=== PATIENT | male | born 1955 | race Caucasian/White ===

== ENCOUNTER 2021-06-22 06:25 | Inpatient (IN) ==
[2021-06-22] MEDS ORDERED: 0.9 % Sodium Chloride 1,000 ML ONE ×2 (06:33→08:27)
[2021-06-22] MEDS ORDERED: *HR* Vasopressin 20 UNIT/ML VIAL ONE (06:43)
[2021-06-22] MEDS ORDERED: NiCARdipine 2.5 MG/10 ML Syringe IVPB ONE (06:43)
[2021-06-22] MEDS ORDERED: 0.9 % Sodium Chloride 250 ML ONE (06:57)
[2021-06-22] MEDS ORDERED: Vancomycin 1,000 MG VIAL ONE (06:57)
[2021-06-22] MEDS ORDERED: D5% in Water 100 ML ONE (06:57)
[2021-06-22] MEDS ORDERED: Protamine Sulfate 50 MG/5 ML VIAL IVP ONE ×2 (07:02→07:33)
[2021-06-22] MEDS ORDERED: Heparin 1,000 UNITS/500 mL 2,000 ML ONE (07:03)
[2021-06-22] MEDS ORDERED: *HR* Heparin 10,000 UNIT/10 ML VIAL ONE ×3 (07:03→07:57)
[2021-06-22] MEDS ORDERED: ISOVUE-370 200 ML INFUS..BTL ONE (07:03)
[2021-06-22] MEDS ORDERED: 0.9 % Sodium Chloride 2,000 ML ONE (07:03)
[2021-06-22] MEDS ORDERED: *HR* Norepinephrine 4 MG/4 ML VIAL IVC ONE (07:12)
[2021-06-22] MEDS ORDERED: *HR* FentaNYL (PF) 100 MCG/2 ML VIAL ONE ×2 (07:18→09:19)
[2021-06-22] MEDS ORDERED: *HR* Midazolam HCl 2 MG/2 ML VIAL ONE (07:18)
[2021-06-22] MEDS ORDERED: *HR* Midazolam HCl 5 MG/5 ML VIAL IVP ONE (08:49)
[2021-06-22] MEDS ORDERED: *HR* LORazepam 2 MG/ML VIAL IVP PRN (11:04)
[2021-06-22] MEDS ORDERED: Ipratropium/Albuterol Neb 3 ML IH PRN (11:06)
[2021-06-22] MEDS: Norepinephrine 4 MG/254 ML IV.SOLN IVC SCH ×2 (11:56→15:43)
[2021-06-22] MEDS ORDERED: *HR* Labetalol 20 MG/4 ML SYRINGE IVP ONE (12:21)
[2021-06-22] MEDS: Folic Acid 1 MG TABLET PO SCH (12:42)
[2021-06-22] MEDS: Thiamine (B-1) 100 MG TABLET PO SCH (12:42)
[2021-06-22] MEDS: Gabapentin 300 MG CAPSULE PO SCH ×3 (12:42→19:30)
[2021-06-22] MEDS ORDERED: Nitroglycerin 0.4 MG TAB.SUBL SL PRN (13:32)
[2021-06-22] MEDS: *HR* Heparin 5,000 UNIT/ML VIAL SQ SCH ×2 (14:57→21:05)
[2021-06-22] MEDS: CeFAZolin 2,000 MG/120 ML BAG IVPB SCH (14:57)
[2021-06-22] MEDS ORDERED: Perflutren Lipid Microsphere 1.3 ML in 0.9 % Sodium Chloride 8.7 ML IVP PRN (16:15)
[2021-06-22] MEDS ORDERED: hydroCHLOROthiazide 25 MG TABLET PO ONE (16:57)
[2021-06-22] MEDS ORDERED: Isosorbide MONOnitrate (24 HR) 30 MG TAB.ER.24H PO ONE (16:58)
[2021-06-22] MEDS ORDERED: Valsartan 160 MG TABLET PO ONE (16:59)
[2021-06-22] MEDS ORDERED: Nicotine 14 MG PATCH.TD24 TD SCH (21:00)
[2021-06-22] MEDS: niCARdipine 20 MG/200 ML MLS IVC SCH ×2 (22:26→22:59)
[2021-06-23] MEDS: CeFAZolin 2,000 MG/120 ML BAG IVPB SCH (00:31)
[2021-06-23] MEDS: *HR* Heparin 5,000 UNIT/ML VIAL SQ SCH (05:41)
[2021-06-23] MEDS: niCARdipine 20 MG/200 ML MLS IVC SCH ×3 (06:18→12:18)
[2021-06-23] MEDS: Budesonide/Glycopyr/Formoterol [Breztri Aerosphere] IH SCH (07:08)
[2021-06-23] MEDS: Norepinephrine 4 MG/254 ML IV.SOLN IVC SCH ×2 (07:08→08:27)
[2021-06-23 07:29] LABS: Hematocrit 41.1 % (37.5-50.1); Hemoglobin 13.5 g/dL (12.9-16.9)
[2021-06-23 07:54] LABS: BUN/Creatinine Ratio 9 (6-26); Blood Urea Nitrogen 7 mg/dL (8-23); Calcium 8.9 mg/dL (8.6-10.3); Carbon Dioxide 26 mEq/L (23-29); Chloride 100 mEq/L (98-107); Glucose 100 mg/dL (70-105); Osmolality,Calculated 274 (280-300); Potassium 3.8 mEq/L (3.5-5.1); Sodium 133 mEq/L (136-145); eGFR For African Americans > 60 (> 60); eGFR For Non-African Americans > 60 (> 60)
[2021-06-23] MEDS: Thiamine (B-1) 100 MG TABLET PO SCH (08:26)
[2021-06-23] MEDS: Gabapentin 300 MG CAPSULE PO SCH (08:27)
[2021-06-23] MEDS: Folic Acid 1 MG TABLET PO SCH (08:27)
[2021-06-23] MEDS ORDERED: hydroCHLOROthiazide 25 MG TABLET PO SCH (09:00)
[2021-06-23] MEDS ORDERED: Valsartan 160 MG TABLET PO SCH (09:00)
[2021-06-23] MEDS ORDERED: Roflumilast [Daliresp] 500 MCG Tablet PO SCH (09:00)
[2021-06-23] MEDS ORDERED: Isosorbide MONOnitrate (24 HR) 30 MG TAB.ER.24H PO SCH (09:00)
[2021-06-23] MEDS ORDERED: Aspirin 81 MG TAB.CHEW PO SCH (09:00)
[2021-06-23] MEDS ORDERED: Tiotropium 10 INH DOSE IH SCH (10:00)
[2021-06-23] MEDS: Ipratropium/Albuterol Neb 3 ML IH SCH ×2 (10:02)
[2021-06-23 11:44] VITALS: TEMP 98.3
[2021-06-23 14:07] VITALS: BP 141/81; PULSE 82; O2SAT 92
== END 2021-06-23 15:00 | disposition home or self-care (01) | DRG 267 ==
LOC: INVDIALAB 06:25 → ICNU 10:29
PROVIDERS: ADMIT Thoracic Surgery (Cardiothoracic Vascular Surgery); ATTEND Thoracic Surgery (Cardiothoracic Vascular Surgery)